=== PATIENT | female | born 1940 | race Caucasian/White ===

== ENCOUNTER 2025-01-26 19:52 | Inpatient (IN) | payer BC, MEDICARE, OTHER ==
[~2025-01-26] VITALS: Ht 172.7 cm; Wt 82.6 kg
[2025-01-26 19:53] VITALS: O2SAT 97
[2025-01-26] MEDS: SODIUM CHLORIDE 0.9% (SEPSIS BOLUS) IV ONE (21:09)
[2025-01-26] MEDS: GENTAMICIN 80MG PREMIX 100 ML IV ONE (21:34)
[2025-01-26 22:00] LABS: HEMATOCRIT. 34.5 % (36.0-48.0); HEMOGLOBIN. 10.6 g/dL (12.0-16.0); MEAN PLATELET VOLUME 7.3 fl (7.4-10.4); PLATELET 193 x1000/uL (130-400); RED BLOOD CELL COUNT 3.42 mill/uL (4.2-5.4); RED CELL DISTRIBUTION WIDTH 16.7 % (11.6-14.6)
[2025-01-26 22:22] LABS: LYMPHOCYTES % MANUAL 25.0 % (20.0-60.0); MONOCYTES % MANUAL 17.0 % (2.0-8.0); NEUTROPHILS % MANUAL 58.0 % (45.0-75.0); PLATELET ESTIMATE NORMAL
[2025-01-26 22:34] LABS: CREATININE 1.2 mg/dL (0.6-1.0); UREA NITROGEN BLOOD 11 mg/dL (9-23)
[2025-01-26 22:37] LABS: BILIRUBIN DIRECT 0.2 mg/dL (<=3.0); BILIRUBIN TOTAL 0.4 mg/dL (0.1-1.0); PROTEIN TOTAL 6.0 g/dL (6.0-8.3)
[2025-01-26 23:07] LABS: TROPONIN I HIGH SENSITIVITY 7 ng/L (3.0-34)
[2025-01-26] MEDS ORDERED: GUAIFENESIN 200MG/10ML SUGAR FREE UDC PO PRN (23:45)
[2025-01-26] MEDS ORDERED: MAGNESIUM/ALUMINUM HYDROXIDE/SIMETHICONE 30ML UDC PO PRN ×2 (23:45)
[2025-01-26] MEDS ORDERED: CLONIDINE 0.1MG TABLET PO PRN ×2 (23:45)
[2025-01-26] MEDS ORDERED: DOCUSATE SODIUM 100MG CAPSULE PO PRN ×2 (23:45)
[2025-01-26] MEDS ORDERED: IPRATROPIUM/ALBUTEROL 0.5-3(2.5)MG/3ML NEB HHN PRN ×2 (23:45)
[2025-01-26] MEDS ORDERED: ONDANSETRON HCL 4MG/2ML INJ IV PRN ×2 (23:45)
[2025-01-26] MEDS ORDERED: ACETAMINOPHEN 325MG TABLET PO PRN ×3 (23:45)
[2025-01-27] VITALS (7 sets, daily range): BP systolic 104–139; BP diastolic 44–77; PULSE 69–94; RESP 16–18; TEMP 35.9–36.9; O2SAT 69–100
[2025-01-27 01:03] LABS: ASPARTATE AMINOTRANSFERASE 20 IU/L (<34)
[2025-01-27] MEDS: SODIUM CHLORIDE 0.9% 1,000 ML IV SCH (01:20)
[2025-01-27] MEDS: LEVOFLOXACIN 500MG PREMIX 100 ML IV SCH (04:14)
[2025-01-27 07:51] LABS: TROPONIN I HIGH SENSITIVITY 8 ng/L (3.0-34)
[2025-01-27] MEDS: APIXABAN 5 MG TABLET PO SCH (08:57)
[2025-01-27] MEDS: METOPROLOL SUCCINATE 50MG ER TABLET PO SCH (09:00)
[2025-01-27 11:04] LABS: CLARITY URINE CLOUDY (CLEAR); COLOR URINE DARK YELLOW (YELLOW); GLUCOSE URINE NEGATIVE (NEGATIVE); KETONES URINE TRACE (NEGATIVE); LEUKOCYTE ESTERASE URINE 1+ (NEGATIVE); NITRITE URINE POSITIVE (NEGATIVE); OCCULT BLOOD URINE NEGATIVE (NEGATIVE); PH URINE 5.5 (4.5-8.0); PROTEIN URINE 1+ (NEGATIVE); SPECIFIC GRAVITY URINE 1.027 (1.005-1.030); UROBILINOGEN URINE 1.0 E.U./dL (0.2-1.0)
[2025-01-27 11:31] LABS: BACTERIA URINE 3+; RBC URINE 0-2 /hpf (0-2); SQUAMOUS EPITHELIAL CELL URINE 3+ /lpf (RARE/1+)
[2025-01-27 11:32] LABS: YEAST URINE NONE SEEN
[2025-01-27 14:43] LABS: CLARITY URINE CLOUDY (CLEAR); COLOR URINE YELLOW (YELLOW)
[2025-01-27 14:44] LABS: GLUCOSE URINE NEGATIVE (NEGATIVE); KETONES URINE NEGATIVE (NEGATIVE); LEUKOCYTE ESTERASE URINE NEGATIVE (NEGATIVE); NITRITE URINE POSITIVE (NEGATIVE); OCCULT BLOOD URINE NEGATIVE (NEGATIVE); PH URINE 5.5 (4.5-8.0); PROTEIN URINE 1+ (NEGATIVE); SPECIFIC GRAVITY URINE 1.025 (1.005-1.030); UROBILINOGEN URINE 0.2 E.U./dL (0.2-1.0)
[2025-01-27 14:54] LABS: BACTERIA URINE 3+; RBC URINE 0-2 /hpf (0-2); SQUAMOUS EPITHELIAL CELL URINE 2+ /lpf (RARE/1+); YEAST URINE NONE SEEN
[2025-01-27] MEDS: CEFTRIAXONE 1GM/50ML 50 ML IV SCH (14:57)
[2025-01-27 15:07] LABS: *AMPHETAMINES SCREEN URINE NEGATIVE (NEGATIVE); *BARBITURATES SCREEN URINE NEGATIVE (NEGATIVE); *BENZODIAZEPINES SCREEN URINE NEGATIVE (NEGATIVE); *COCAINE SCREEN URINE NEGATIVE (NEGATIVE); METHADONE URINE SCREEN NEGATIVE (NEGATIVE)
[2025-01-27 15:08] LABS: CANNABINOID URINE SCREEN NEGATIVE (NEGATIVE); ECSTASY MDMA SCREEN URINE CONF.TEST INDICATED (NEGATIVE); OPIATES URINE SCREEN PRESUMPTIVE POSITIVE (NEGATIVE); PHENCYCLIDINE URINE SCREEN NEGATIVE (NEGATIVE)
[2025-01-27 22:30] LABS: BASOPHILS % 0.7 % (0.0-2.0); EOSINOPHILS % 1.0 % (0.0-5.0); HEMATOCRIT. 33.1 % (36.0-48.0); HEMOGLOBIN. 10.7 g/dL (12.0-16.0); LYMPHOCYTES % 17.2 % (20.0-50.0); MEAN PLATELET VOLUME 7.7 fl (7.4-10.4); MONOCYTES % 14.1 % (2.0-8.0); NEUTROPHILS % 67.0 % (40.0-76.0); PLATELET 191 x1000/uL (130-400); RED BLOOD CELL COUNT 3.43 mill/uL (4.2-5.4); RED CELL DISTRIBUTION WIDTH 15.7 % (11.6-14.6)
[2025-01-27 23:00] LABS: CREATININE 1.0 mg/dL (0.6-1.0); TRIGLYCERIDE 86.0 mg/dL (0-150); UREA NITROGEN BLOOD 10.0 mg/dL (9-23)
[2025-01-27 23:01] LABS: CREATINE KINASE MB FRACTION 10.8 ng/mL (0.5-3.6); LDL CHOLESTEROL 102.0 mg/dL (5-100); TROPONIN I HIGH SENSITIVITY 10 ng/L (3.0-34)
[2025-01-27 23:04] LABS: T4 FREE 1.09 ng/dL (0.89-1.76)
[2025-01-27 23:08] LABS: FOLIC ACID (FOLATE) SERUM 18.74 ng/mL (>5.38); VITAMIN B12 SERUM 342 pg/mL (211-911)
[2025-01-28] VITALS: BP 120/61; PULSE 74; RESP 16; TEMP 36.9; O2SAT 97
[2025-01-28 05:00] VITALS: BP 119/69; PULSE 89; RESP 17; TEMP 36.3; O2SAT 95
[2025-01-28] MEDS ORDERED: LEVOFLOXACIN 250MG PREMIX 100 ML IV SCH (06:00)
[2025-01-28 08:57] VITALS: BP 99/69; PULSE 89; RESP 18; TEMP 35.5; O2SAT 91
[2025-01-28 12:00] VITALS: BP 131/70; PULSE 133; RESP 18; TEMP 36.8; O2SAT 97
[2025-01-28 16:00] VITALS: BP 151/67; PULSE 101; RESP 18; TEMP 36.6; O2SAT 88
[2025-01-28 20:00] VITALS: BP 148/62; PULSE 62; RESP 18; TEMP 36.1; O2SAT 90
[2025-01-29] VITALS: BP 138/57; PULSE 111; RESP 18; TEMP 36.1; O2SAT 96
[2025-01-29 04:00] VITALS: BP 147/60; PULSE 89; RESP 18; TEMP 36.1; O2SAT 99
[2025-01-29 07:37] LABS: HEMATOCRIT. 33.8 % (36.0-48.0); HEMOGLOBIN. 11.4 g/dL (12.0-16.0); MEAN PLATELET VOLUME 7.3 fl (7.4-10.4); PLATELET 199 x1000/uL (130-400); RED BLOOD CELL COUNT 3.55 mill/uL (4.2-5.4); RED CELL DISTRIBUTION WIDTH 15.7 % (11.6-14.6)
[2025-01-29 07:38] LABS: CREATININE 1.0 mg/dL (0.6-1.0); UREA NITROGEN BLOOD 12 mg/dL (9-23)
[2025-01-29 07:40] LABS: PHOSPHORUS 3.2 mg/dL (2.5-4.9)
[2025-01-29 08:00] VITALS: BP 110/70; PULSE 62; RESP 18; TEMP 36.9; O2SAT 95
[2025-01-29] MEDS: MAGNESIUM 2 G PREMIX 50 ML IV SCH (10:41)
[2025-01-29] MEDS: POTASSIUM CHLORIDE 20MEQ TABLET SR PO NR (10:41)
[2025-01-29 12:00] VITALS: BP 154/121; PULSE 85; RESP 18; TEMP 36.8; O2SAT 95
[2025-01-29 15:43] LABS: LYMPHOCYTES % MANUAL 10.0 % (20.0-60.0); MONOCYTES % MANUAL 16.0 % (2.0-8.0); NEUTROPHILS % MANUAL 74.0 % (45.0-75.0); PLATELET ESTIMATE NORMAL
[2025-01-29 16:00] VITALS: BP 122/60; PULSE 67; RESP 18; TEMP 36.5; O2SAT 95
[2025-01-29 20:00] VITALS: BP 114/82; PULSE 78; RESP 19; TEMP 36.3; O2SAT 100
[2025-01-29] MEDS: MIRTAZAPINE 15MG TABLET PO SCH (21:04)
[2025-01-30] VITALS: BP 103/60; PULSE 96; RESP 18; TEMP 36.4; O2SAT 100
[2025-01-30 04:00] VITALS: BP 122/60; PULSE 100; RESP 18; TEMP 36.3; O2SAT 98
[2025-01-30 08:00] VITALS: BP 126/63; PULSE 93; RESP 15; TEMP 35.9; O2SAT 97
[2025-01-30 11:56] LABS: HEMATOCRIT. 34.9 % (36.0-48.0); HEMOGLOBIN. 11.5 g/dL (12.0-16.0); MEAN PLATELET VOLUME 7.6 fl (7.4-10.4); PLATELET 198 x1000/uL (130-400); RED BLOOD CELL COUNT 3.67 mill/uL (4.2-5.4); RED CELL DISTRIBUTION WIDTH 15.7 % (11.6-14.6)
[2025-01-30 12:00] VITALS: BP 114/72; PULSE 101; RESP 18; TEMP 36.4; O2SAT 99
[2025-01-30 12:08] LABS: CREATININE 0.8 mg/dL (0.6-1.0); UREA NITROGEN BLOOD 9 mg/dL (9-23)
[2025-01-30 16:00] VITALS: BP 116/69; PULSE 86; RESP 16; TEMP 36.6; O2SAT 99
[2025-01-30 17:10] LABS: LYMPHOCYTES % MANUAL 6.0 % (20.0-60.0); MONOCYTES % MANUAL 9.0 % (2.0-8.0); NEUTROPHILS % MANUAL 85.0 % (45.0-75.0); PLATELET ESTIMATE NORMAL
[2025-01-30 20:00] VITALS: BP 125/62; PULSE 97; RESP 17; TEMP 37.2; O2SAT 96
[2025-01-31] VITALS (7 sets, daily range): BP systolic 112–136; BP diastolic 43–87; PULSE 70–98; RESP 16–18; TEMP 36.2–36.9; O2SAT 95–99
[2025-01-31] MEDS: GUAIFENESIN 200MG/10ML SUGAR FREE UDC PO PRN (02:17)
[2025-02-01] VITALS: BP 109/54; PULSE 87; RESP 17; TEMP 36.6; O2SAT 96
[2025-02-01 04:00] VITALS: BP 118/55; PULSE 85; RESP 17; TEMP 36.5; O2SAT 95
[2025-02-01] MEDS ORDERED: MAGNESIUM 2 G PREMIX 50 ML IV ONE (05:15)
[2025-02-01 08:00] VITALS: BP 100/54; PULSE 70; RESP 16; TEMP 36.6; O2SAT 96
[2025-02-01 10:40] LABS: BASOPHILS % 0.9 % (0.0-2.0); EOSINOPHILS % 1.8 % (0.0-5.0); HEMATOCRIT. 27.9 % (36.0-48.0); HEMOGLOBIN. 9.2 g/dL (12.0-16.0); LYMPHOCYTES % 13.3 % (20.0-50.0); MEAN PLATELET VOLUME 8.0 fl (7.4-10.4); MONOCYTES % 11.6 % (2.0-8.0); NEUTROPHILS % 72.4 % (40.0-76.0); PLATELET 214 x1000/uL (130-400); RED BLOOD CELL COUNT 2.95 mill/uL (4.2-5.4); RED CELL DISTRIBUTION WIDTH 15.6 % (11.6-14.6)
[2025-02-01 10:59] LABS: CREATININE 0.9 mg/dL (0.6-1.0); UREA NITROGEN BLOOD 20.0 mg/dL (9-23)
[2025-02-01 12:00] VITALS: BP 106/49; PULSE 100; RESP 16; TEMP 36.3; O2SAT 95
[2025-02-01 16:00] VITALS: BP 118/68; PULSE 95; RESP 16; TEMP 36.4; O2SAT 95
[2025-02-01 20:00] VITALS: BP 114/56; PULSE 94; RESP 16; TEMP 36.2; O2SAT 94
[2025-02-02] VITALS: BP 118/56; PULSE 84; RESP 16; TEMP 36.9; O2SAT 98
[2025-02-02 04:00] VITALS: BP 130/73; PULSE 80; RESP 16; TEMP 36.2; O2SAT 97
[2025-02-02 06:28] LABS: PLATELET 225 x1000/uL (130-400); RED BLOOD CELL COUNT 3.20 mill/uL (4.2-5.4); RED CELL DISTRIBUTION WIDTH 15.4 % (11.6-14.6)
[2025-02-02 06:46] LABS: CREATININE 0.7 mg/dL (0.6-1.0); UREA NITROGEN BLOOD 21 mg/dL (9-23)
[2025-02-02 06:48] LABS: PHOSPHORUS 3.1 mg/dL (2.5-4.9)
[2025-02-02 08:00] VITALS: BP 112/71; PULSE 75; RESP 18; TEMP 36.6; O2SAT 95
[2025-02-02 12:00] VITALS: BP 136/57; PULSE 94; RESP 18; TEMP 36.7; O2SAT 99
[2025-02-02] MEDS: MAGNESIUM 2 G PREMIX 50 ML IV NR (12:58)
[2025-02-02 16:00] VITALS: BP 120/69; PULSE 77; RESP 18; TEMP 36.8; O2SAT 97
[2025-02-02 20:00] VITALS: BP 122/58; PULSE 91; RESP 16; TEMP 36.9; O2SAT 97
[2025-02-03] VITALS (7 sets, daily range): BP systolic 119–125; BP diastolic 55–70; PULSE 65–94; RESP 16–18; TEMP 36.4–37.1; O2SAT 95–100
[2025-02-03 06:27] LABS: CREATININE 0.6 mg/dL (0.6-1.0); UREA NITROGEN BLOOD 17 mg/dL (9-23)
[2025-02-03 06:29] LABS: PHOSPHORUS 3.2 mg/dL (2.5-4.9)
[2025-02-03 06:49] LABS: HEMATOCRIT. 31.2 % (36.0-48.0); HEMOGLOBIN. 10.4 g/dL (12.0-16.0); MEAN PLATELET VOLUME 7.8 fl (7.4-10.4); PLATELET 248 x1000/uL (130-400); RED BLOOD CELL COUNT 3.33 mill/uL (4.2-5.4); RED CELL DISTRIBUTION WIDTH 15.3 % (11.6-14.6)
[2025-02-03 17:50] LABS: EOSINOPHILS % MANUAL 2.0 % (0.0-5.0); LYMPHOCYTES % MANUAL 13.0 % (20.0-60.0); MONOCYTES % MANUAL 12.0 % (2.0-8.0); NEUTROPHILS % MANUAL 73.0 % (45.0-75.0)
[2025-02-03 17:51] LABS: PLATELET ESTIMATE NORMAL
[2025-02-03] MEDS ORDERED: MAGNESIUM 2 G PREMIX 50 ML IV SCH (21:30)
[2025-02-04] VITALS: BP 138/86; PULSE 75; RESP 16; TEMP 36.7; O2SAT 96
[2025-02-04 04:00] VITALS: BP 118/74; PULSE 75; RESP 16; TEMP 36.9; O2SAT 95
[2025-02-04 07:14] LABS: CREATININE 0.7 mg/dL (0.6-1.0)
[2025-02-04 07:15] LABS: UREA NITROGEN BLOOD 15 mg/dL (9-23)
[2025-02-04 08:00] VITALS: BP 110/60; PULSE 93; RESP 16; TEMP 36.2; O2SAT 99
[2025-02-04 12:00] VITALS: BP 127/53; PULSE 80; RESP 18; TEMP 36.3; O2SAT 97
[2025-02-04] MEDS: MAGNESIUM 2 G PREMIX 50 ML IV NR (12:55)
[2025-02-04 16:00] VITALS: BP 134/75; PULSE 90; RESP 18; TEMP 36.3; O2SAT 97
[2025-02-04 20:00] VITALS: BP 116/47; PULSE 84; RESP 17; TEMP 35.9; O2SAT 99
[2025-02-05] VITALS: BP 119/70; PULSE 99; RESP 16; TEMP 36.4; O2SAT 98
[2025-02-05 04:00] VITALS: BP 124/65; PULSE 82; RESP 16; TEMP 37.1; O2SAT 99
[2025-02-05 08:00] VITALS: BP 101/48; PULSE 111; RESP 18; TEMP 36.4; O2SAT 99
[2025-02-05 12:00] VITALS: BP 108/57; PULSE 107; RESP 18; TEMP 36.6; O2SAT 97
[2025-02-05 16:00] VITALS: BP 138/79; PULSE 108; RESP 18; TEMP 36.8; O2SAT 97
[2025-02-05 20:00] VITALS: BP 136/59; PULSE 103; RESP 18; TEMP 36.4; O2SAT 98
[2025-02-06] VITALS: BP 130/72; PULSE 82; RESP 18; TEMP 36.4; O2SAT 96
[2025-02-06 04:00] VITALS: BP 130/73; PULSE 93; RESP 18; TEMP 36.5; O2SAT 95
[2025-02-06 08:00] VITALS: BP 113/70; PULSE 107; RESP 19; TEMP 36.6; O2SAT 98
[2025-02-06 12:00] VITALS: BP 116/65; PULSE 102; RESP 19; TEMP 36.8; O2SAT 99
[2025-02-06] MEDS ORDERED: METO-385 PO (15:10)
[2025-02-06] MEDS ORDERED: APIX5TAB PO (15:10)
[2025-02-06] MEDS ORDERED: MIRT-89 PO (15:10)
[2025-02-06 16:00] VITALS: BP 140/61; PULSE 96; RESP 20; TEMP 36.6; O2SAT 100
[2025-02-06 20:00] VITALS: BP 127/82; PULSE 98; RESP 18; TEMP 36.2; O2SAT 96
[2025-02-07] VITALS: BP 111/71; PULSE 118; RESP 17; TEMP 36.8; O2SAT 95
[2025-02-07 04:00] VITALS: BP 118/71; PULSE 92; RESP 16; TEMP 36.9; O2SAT 96
[2025-02-07 08:00] VITALS: BP 117/79; PULSE 52; RESP 18; TEMP 36.2; O2SAT 100
[2025-02-07 12:00] VITALS: BP 104/63; PULSE 83; RESP 18; TEMP 36.9; O2SAT 100
[2025-02-07 16:00] VITALS: BP 139/65; PULSE 101; RESP 18; TEMP 36.1; O2SAT 96
[2025-02-07 20:00] VITALS: BP 96/65; PULSE 91; RESP 17; TEMP 36.6; O2SAT 99
[2025-02-08] VITALS: BP 127/70; PULSE 114; RESP 17; TEMP 36.5; O2SAT 98
[2025-02-08 04:00] VITALS: BP 136/69; PULSE 99; RESP 18; TEMP 36.3; O2SAT 99
[2025-02-08 08:00] VITALS: BP 122/66; PULSE 121; RESP 18; TEMP 36.2; O2SAT 100
[2025-02-08 12:00] VITALS: BP 95/70; PULSE 78; RESP 15; TEMP 36.2; O2SAT 98
[2025-02-08 16:00] VITALS: BP 127/66; PULSE 80; RESP 18; TEMP 36.5; O2SAT 99
[2025-02-08 20:00] VITALS: BP 67/44; PULSE 72; RESP 18; TEMP 36.2; O2SAT 97
[2025-02-09] VITALS: BP 116/49; PULSE 102; RESP 18; TEMP 37; O2SAT 18
[2025-02-09 04:00] VITALS: BP 114/63; PULSE 106; RESP 17; TEMP 36.5; O2SAT 98
[2025-02-09 08:00] VITALS: BP 117/45; PULSE 92; RESP 16; TEMP 36.2; O2SAT 96
[2025-02-09 12:00] VITALS: BP 124/64; PULSE 81; RESP 16; TEMP 36.3; O2SAT 97
[2025-02-09 16:00] VITALS: BP 140/66; PULSE 100; RESP 26; TEMP 36.6; O2SAT 97
[2025-02-09 20:00] VITALS: BP 99/50; PULSE 80; RESP 17; TEMP 36.1; O2SAT 97
[2025-02-10] VITALS: BP 90/45; PULSE 80; RESP 17; TEMP 36.4; O2SAT 98
[2025-02-10 04:00] VITALS: BP 126/63; PULSE 82; RESP 16; TEMP 36.3; O2SAT 97
[2025-02-10 08:00] VITALS: BP 140/56; PULSE 91; RESP 18; TEMP 36.3; O2SAT 96
[2025-02-10 12:00] VITALS: BP 111/65; PULSE 84; RESP 17; TEMP 36.3; O2SAT 96
[2025-02-10 16:00] VITALS: BP 125/60; PULSE 80; RESP 16; TEMP 36.3; O2SAT 96
[2025-02-10 20:00] VITALS: BP 98/50; PULSE 85; RESP 17; TEMP 36.4; O2SAT 98
[2025-02-11] VITALS: BP 94/62; PULSE 93; RESP 16; TEMP 36.3; O2SAT 96
[2025-02-11 04:00] VITALS: BP 135/84; PULSE 91; RESP 16; TEMP 36.4; O2SAT 95
[2025-02-11 08:00] VITALS: BP 126/61; PULSE 94; RESP 17; TEMP 36.3; O2SAT 94
[2025-02-11 12:00] VITALS: BP 101/60; PULSE 89; RESP 16; TEMP 36.4; O2SAT 95
[2025-02-11 16:00] VITALS: BP 100/65; PULSE 84; RESP 16; TEMP 36.4; O2SAT 94
[2025-02-11 20:00] VITALS: BP 121/65; PULSE 72; RESP 17; TEMP 36.9; O2SAT 95
[2025-02-12] VITALS: BP 135/73; PULSE 91; RESP 17; TEMP 37.1; O2SAT 98
[2025-02-12 04:00] VITALS: BP 146/77; PULSE 72; RESP 16; TEMP 36.4; O2SAT 95
[2025-02-12 08:00] VITALS: BP 108/54; PULSE 73; RESP 18; TEMP 36.3; O2SAT 93
[2025-02-12 12:00] VITALS: BP 129/51; PULSE 84; RESP 18; TEMP 36.1; O2SAT 93
[2025-02-12 16:00] VITALS: BP 132/73; PULSE 97; RESP 17; TEMP 36.9; O2SAT 94
[2025-02-12 20:00] VITALS: BP 140/92; PULSE 89; RESP 17; TEMP 36.4; O2SAT 97
[2025-02-13] VITALS: BP 142/81; PULSE 91; RESP 17; TEMP 36.2; O2SAT 98
[2025-02-13 04:00] VITALS: BP 127/82; PULSE 79; RESP 17; TEMP 36.4; O2SAT 98
[2025-02-13 08:00] VITALS: BP 127/68; PULSE 95; RESP 18; TEMP 36.3; O2SAT 98
[2025-02-13 12:00] VITALS: BP 125/70; PULSE 85; RESP 18; TEMP 36.4; O2SAT 98
[2025-02-13 16:00] VITALS: BP 131/73; PULSE 102; RESP 18; TEMP 36.7; O2SAT 97
[2025-02-13 20:00] VITALS: BP 106/68; PULSE 83; RESP 16; TEMP 36.8; O2SAT 98
[2025-02-14] VITALS: BP 115/60; PULSE 78; RESP 18; TEMP 36.4; O2SAT 99
[2025-02-14 04:00] VITALS: BP 116/59; PULSE 88; RESP 18; TEMP 36.5; O2SAT 95; O2SAT 97
[2025-02-14 08:00] VITALS: BP 111/63; PULSE 86; RESP 18; TEMP 36.4; O2SAT 96
[2025-02-14 12:00] VITALS: BP 100/67; PULSE 88; RESP 18; TEMP 36; O2SAT 99
[2025-02-14 16:00] VITALS: BP 124/65; PULSE 99; RESP 18; TEMP 36.3; O2SAT 100
[2025-02-14 20:00] VITALS: BP 109/66; PULSE 75; RESP 18; TEMP 36.6; O2SAT 97
[2025-02-15] VITALS: BP 124/65; PULSE 83; RESP 16; TEMP 36.4; O2SAT 98
[2025-02-15 04:00] VITALS: BP 127/66; PULSE 74; RESP 16; TEMP 36.4; O2SAT 99
[2025-02-15 08:00] VITALS: BP 110/60; PULSE 92; RESP 20; TEMP 36.3; O2SAT 98
[2025-02-15 12:00] VITALS: BP 110/60; PULSE 92; RESP 20; TEMP 36.3; O2SAT 98
[2025-02-15 16:00] VITALS: BP 122/59; PULSE 68; RESP 20; TEMP 36.4; O2SAT 98
[2025-02-15 20:00] VITALS: BP 125/80; PULSE 95; RESP 18; TEMP 36.6; O2SAT 97
[2025-02-16] VITALS: BP 99/57; PULSE 84; RESP 18; TEMP 36.6; O2SAT 97
[2025-02-16 04:00] VITALS: BP 109/57; PULSE 77; RESP 18; TEMP 36.6; O2SAT 100
[2025-02-16 08:00] VITALS: BP 97/61; PULSE 69; RESP 18; TEMP 36.3; O2SAT 100
[2025-02-16 12:00] VITALS: BP 123/72; PULSE 100; RESP 20; TEMP 36.8; O2SAT 100
[2025-02-16 16:00] VITALS: BP 124/85; PULSE 75; RESP 18; TEMP 36.3
[2025-02-16 20:00] VITALS: BP 107/48; PULSE 68; RESP 18; TEMP 36.7; O2SAT 97
[2025-02-16] MEDS: ACETAMINOPHEN 325MG TABLET PO PRN (20:26)
[2025-02-17] VITALS: BP 121/54; PULSE 72; RESP 18; TEMP 35.7; O2SAT 97
[2025-02-17 04:00] VITALS: BP 133/78; PULSE 107; RESP 17; TEMP 35.2; O2SAT 97
[2025-02-17 12:00] VITALS: BP 105/41; PULSE 97; RESP 17; TEMP 35.9; O2SAT 97
[2025-02-17 16:00] VITALS: BP 116/75; PULSE 77; RESP 18; TEMP 37.1; O2SAT 100
[2025-02-17 20:00] VITALS: BP 106/62; PULSE 77; RESP 18; TEMP 36.5; O2SAT 100
[2025-02-18] VITALS: BP 121/57; PULSE 77; RESP 18; TEMP 36.4; O2SAT 99
[2025-02-18 04:00] VITALS: BP 128/73; PULSE 94; RESP 18; TEMP 36.8; O2SAT 98
[2025-02-18 08:00] VITALS: BP 138/76; PULSE 88; RESP 18; TEMP 36.3; O2SAT 100
[2025-02-18 12:00] VITALS: BP 105/56; PULSE 81; RESP 20; TEMP 36.1; O2SAT 96
[2025-02-18 16:00] VITALS: BP 112/57; PULSE 78; RESP 18; TEMP 35.6; O2SAT 100
[2025-02-18 20:00] VITALS: BP 135/57; PULSE 88; RESP 19; TEMP 36.5; O2SAT 99
[2025-02-19] VITALS: BP 137/77; PULSE 79; RESP 19; TEMP 36.1; O2SAT 97
[2025-02-19 04:00] VITALS: BP 114/72; PULSE 85; RESP 19; TEMP 36.7; O2SAT 97
[2025-02-19 08:00] VITALS: BP 124/65; PULSE 65; RESP 16; TEMP 36.1; O2SAT 95
[2025-02-19 12:00] VITALS: BP 110/50; PULSE 111; RESP 22; TEMP 35.6; O2SAT 100
[2025-02-19 16:00] VITALS: BP 100/52; PULSE 105; RESP 20; TEMP 35.7; O2SAT 95
[2025-02-19 20:00] VITALS: BP 122/68; PULSE 68; RESP 18; TEMP 36.4; O2SAT 97
[2025-02-19] MEDS: PANTOPRAZOLE 40MG DR TABLET PO SCH (21:04)
[2025-02-19] MEDS: APIXABAN 5 MG TABLET PO SCH (21:04)
[2025-02-20] VITALS: BP 125/61; PULSE 84; RESP 18; TEMP 36.2; O2SAT 97
[2025-02-20 04:00] VITALS: BP 125/92; PULSE 78; RESP 18; TEMP 36.2; O2SAT 95
[2025-02-20 08:00] VITALS: BP 140/79; PULSE 111; RESP 12; TEMP 35.6; O2SAT 93
[2025-02-20 12:00] VITALS: BP 95/55; PULSE 85; RESP 12; TEMP 35.9; O2SAT 93
[2025-02-20 16:00] VITALS: BP 112/67; PULSE 70; RESP 13; TEMP 35.8; O2SAT 94
[2025-02-20 20:00] VITALS: BP 121/65; PULSE 82; RESP 18; TEMP 36.2; O2SAT 95
[2025-02-21] VITALS: BP 125/67; PULSE 69; RESP 18; TEMP 35.9; O2SAT 87
[2025-02-21 04:00] VITALS: BP 124/65; PULSE 71; RESP 18; TEMP 35.8; O2SAT 89
[2025-02-21 08:00] VITALS: BP 129/87; PULSE 106; RESP 14; TEMP 35.9; O2SAT 99
[2025-02-21 12:00] VITALS: BP 110/76; PULSE 78; RESP 18; TEMP 36.4; O2SAT 99
[2025-02-21 16:00] VITALS: BP 125/81; PULSE 101; RESP 17; TEMP 36.6; O2SAT 98
[2025-02-21 20:00] VITALS: BP 112/60; PULSE 84; RESP 18; TEMP 35.9; O2SAT 100
[2025-02-22] VITALS: BP 114/65; PULSE 93; RESP 16; TEMP 36.5; O2SAT 100
[2025-02-22 04:00] VITALS: BP 117/55; PULSE 79; RESP 18; TEMP 36.5; O2SAT 100
[2025-02-22 08:00] VITALS: BP 114/70; PULSE 101; RESP 20; TEMP 35.8; O2SAT 98
[2025-02-22 12:00] VITALS: BP 115/58; PULSE 66; RESP 17; TEMP 35.7; O2SAT 98
[2025-02-22 16:00] VITALS: BP 118/63; PULSE 77; RESP 18; TEMP 35.8; O2SAT 100
[2025-02-23] VITALS: BP 106/63; PULSE 80; RESP 16; TEMP 36.7; O2SAT 96
[2025-02-23 04:00] VITALS: BP 119/53; PULSE 61; RESP 18; TEMP 36.6; O2SAT 96
[2025-02-23 08:00] VITALS: BP 108/63; PULSE 88; RESP 15; TEMP 35.8; O2SAT 95
[2025-02-23 12:00] VITALS: PULSE 99; RESP 16; TEMP 35.6; O2SAT 97
[2025-02-23 16:00] VITALS: BP 128/60; PULSE 100; RESP 16; TEMP 36.5; O2SAT 97
[2025-02-23 20:00] VITALS: BP 121/60; PULSE 91; RESP 18; TEMP 36.4; O2SAT 97
[2025-02-24] VITALS: BP 126/58; PULSE 98; RESP 20; TEMP 36.4; O2SAT 98
[2025-02-24 04:00] VITALS: BP 131/60; PULSE 96; RESP 20; TEMP 36.6; O2SAT 98
[2025-02-24 08:00] VITALS: BP 124/80; PULSE 78; RESP 18; TEMP 35.8; O2SAT 98
[2025-02-24 12:00] VITALS: BP_SYST 117; BP_SYST 143; BP_DIAS 50; BP_DIAS 59; PULSE 64; PULSE 83; RESP 18; TEMP 35; TEMP 36.4; O2SAT 100; O2SAT 98
[2025-02-24 16:00] VITALS: BP 129/68; PULSE 107; RESP 20; TEMP 36.6; O2SAT 99
[2025-02-24 20:00] VITALS: BP 130/74; PULSE 19; RESP 19; TEMP 36.5; O2SAT 96
[2025-02-25] VITALS: BP 134/68; PULSE 95; RESP 19; TEMP 36.5; O2SAT 100
[2025-02-25] MEDS ORDERED: CLONIDINE 0.1MG TABLET PO PRN (03:15)
[2025-02-25] MEDS ORDERED: ACETAMINOPHEN 325MG TABLET PO PRN (03:15)
[2025-02-25 04:00] VITALS: BP 130/72; PULSE 96; RESP 19; TEMP 36.6; O2SAT 94
[2025-02-25 08:00] VITALS: BP 105/60; PULSE 100; RESP 18; TEMP 36.5; O2SAT 99
[2025-02-25 12:00] VITALS: BP 111/59; PULSE 83; RESP 18; TEMP 36.5; O2SAT 98
[2025-02-25 15:00] VITALS: BP 111/59; PULSE 83; RESP 18; TEMP 97.7
[2025-02-25 16:00] VITALS: BP 101/63; PULSE 94; RESP 18; TEMP 36.6; O2SAT 100
[2025-02-25] MEDS ORDERED: MIRTAZAPINE 15MG TABLET PO SCH (21:00)
== END 2025-02-25 18:04 | DRG 871 ==
LOC: ER 19:52 → 5WST 23:14 → EDBEDREQ 23:21 → EDBEDREQTM 23:21 → ENRESERV 23:28 → 8EST 02-13 23:07 → 7EST 02-17 23:51
PROVIDERS: ADMIT Internal Medicine; ATTEND Internal Medicine
PROC: GZ56ZZZ Individual Psychotherapy, Supportive (ICD-10-PCS; principal; 2025-01-29)
DX: A41.9 Sepsis, unspecified organism (principal); G93.41 Metabolic encephalopathy; L89.022 Pressure ulcer of left elbow, stage 2; D53.1 Other megaloblastic anemias, not elsewhere classified; E86.0 Dehydration; I48.0 Paroxysmal atrial fibrillation; N17.9 Acute kidney failure, unspecified; N39.0 Urinary tract infection, site not specified; B96.20 Unspecified Escherichia coli [E. coli] as the cause of diseases classified elsewhere; Z79.01 Long term (current) use of anticoagulants; F03.93 Unspecified dementia, unspecified severity, with mood disturbance; E11.22 Type 2 diabetes mellitus with diabetic chronic kidney disease; F32.9 Major depressive disorder, single episode, unspecified; I12.9 Hypertensive chronic kidney disease with stage 1 through stage 4 chronic kidney disease, or unspecified chronic kidney disease; N18.9 Chronic kidney disease, unspecified; E83.42 Hypomagnesemia; F41.9 Anxiety disorder, unspecified; Z88.0 Allergy status to penicillin; Z87.440 Personal history of urinary (tract) infections
CPT/HCPCS: 36415; 71045; 74018; 80048; 80061; 80076; 80305; 80320; 81003; 82140; 82550; 82553; 82607; 82746; 83036; 83605; 83735; 84100; 84439; 84443; 84484; 85025; 85027; 85044; 87077; 87186; 93005; 93970; 96365; 97110; 97163; 97166; 97530; 97535; 99291; A4606; A4615; J0696; J1580; J1956; J3475; J7030; G0480